=== PATIENT | male | born 1960 | race Caucasian/White ===

== ENCOUNTER 2020-04-01 00:16 | Emergency (ER) | payer OTHER ==
[~2020-04-01] VITALS: Ht 165.1 cm; Wt 72.0 kg
[2020-04-01] MEDS ORDERED: morphine 4 MG/ML inj SYRINge IV ONE (00:40)
[2020-04-01] MEDS ORDERED: morphine 2 MG/ML inj. syringe IV ONE ×2 (02:15→03:15)
--- NOTE | 2020-04-01 03:04 | NUR ---
SBA X 2 TO GET PT OUT OF BED AND HE TOOK 2 STEPS AND IS REALLY NOT PUTTING MUCH WEIGHT ON THAT LEFT LEG. THAT IS ALL HE COULD DO AND IT SEEMED THOUGH HIS LEGS WENT OUT FROM HIM AND THERE IS NO WAY HE WOULD OF BEEN ABLE TO DO IT WITHOUT ANY SUPPORT. BACK TO BED. NOW DR CONTRERAS IS SPEAKING TO HIM.
[2020-04-01] MEDS ORDERED: CYCL-1 PO (03:51)
[2020-04-01 04:01] VITALS: BP 124/78
== END 2020-04-01 04:02 | disposition home or self-care (01) ==
LOC: ER 00:18
DX: G89.29 Other chronic pain (principal); M54.5 Low back pain; Z72.89 Other problems related to lifestyle
CPT/HCPCS: 96374; 96376; 99284; J2270